=== PATIENT | female | born 1965 | race Caucasian/White ===

== ENCOUNTER 2018-01-14 06:29 | Outpatient (CLI) | payer BC | END 2018-01-14 23:59 | disposition home or self-care (01) | LOC: D.MAMMO 06:29 | DX: Z12.31 Encounter for screening mammogram for malignant neoplasm of breast (principal) ==

== ENCOUNTER 2018-02-11 19:00 | Outpatient (CLI) | payer BC | END 2018-02-11 23:59 | disposition home or self-care (01) | LOC: D.MAMMO 19:00 | DX: R92.8 Other abnormal and inconclusive findings on diagnostic imaging of breast (principal) ==

== ENCOUNTER → 2018-07-23 11:36 | Outpatient (CLI) | payer BC | END | disposition home or self-care (01) | LOC: D.RAD 11:36 | DX: R06.00 Dyspnea, unspecified (principal) ==

== ENCOUNTER → 2018-10-21 16:02 | Outpatient (CLI) | payer BC | END | disposition home or self-care (01) | LOC: D.US 16:02 | DX: I10 Essential (primary) hypertension (principal) ==

== ENCOUNTER → 2018-11-22 13:23 | Outpatient (CLI) | payer BC | END | disposition home or self-care (01) | LOC: D.RAD 13:23 | PROVIDERS: ATTEND Emergency Medicine | DX: M25.551 Pain in right hip (principal) ==

== ENCOUNTER 2018-12-30 10:29 | Emergency (ER) | payer BC ==
[~2018-12-30] VITALS: Ht 172.7 cm; Wt 79.5 kg
[2018-12-30 10:32] VITALS: Ht 172.7 cm; Wt 79.5 kg
[2018-12-30] MEDS ORDERED: VITAMIN D31000 UNI2 PO (10:34)
[2018-12-30] MEDS ORDERED: ULTRAM50 MG PO (10:34)
[2018-12-30] MEDS ORDERED: HYDROCHLOROTHIA25 MG PO (10:35)
[2018-12-30] MEDS ORDERED: CEREFOLIN TAB1 TAB PO (10:35)
[2018-12-30] MEDS ORDERED: ZYRTEC10 MG PO (10:35)
[2018-12-30] MEDS ORDERED: ROPINIROLE HCL2 MG PO (10:36)
[2018-12-30] MEDS ORDERED: LIPITOR20 MG PO (10:36)
[2018-12-30] MEDS ORDERED: LEXAPRO20 MG PO (10:36)
[2018-12-30] MEDS ORDERED: BUPROPION HCL100 M1 PO (10:37)
[2018-12-30] MEDS ORDERED: HYDROCODON-ACE1 EAC2 PO (12:22)
[2018-12-30 12:43] VITALS: BP 119/74
== END 2018-12-30 12:33 | disposition home or self-care (01) ==
LOC: D.ER 10:29
DX: S22.31XA Fracture of one rib, right side, initial encounter for closed fracture (principal); X50.9XXA Other and unspecified overexertion or strenuous movements or postures, initial encounter; Y93.89 Activity, other specified; Y92.89 Other specified places as the place of occurrence of the external cause